=== PATIENT | female | born 1965 | race Caucasian/White ===

== ENCOUNTER 2017-04-11 17:42 | Emergency (ER) | payer SELFPAY ==
[~2017-04-11] VITALS: Ht 172.7 cm; Wt 90.7 kg
[2017-04-11] MEDS ORDERED: SODIUM CHLORIDE 0.9% 1,000 ML IV ONE (22:30)
[2017-04-11 23:44] VITALS: BP 139/79
[2017-04-11] MEDS ORDERED: ONDANSETRON HCL 4 MG/2 ML VIAL IV ONE (23:45)
[2017-04-11] MEDS ORDERED: MORPHINE SULFATE 4 MG/ML SYR/VIAL IV ONE (23:45)
[2017-04-11] MEDS ORDERED: CEFTRIAXONE SODIUM 2 GM in D5W 5% 50 ML IV ONE (23:45)
[2017-04-11 23:49] LABS: Basophils # (auto) 0.1 uL; Basophils % (auto) 0.8 % (0.0-2.0); Eosinophils # (auto) 0.1 uL; Eosinophils % (auto) 1.1 % (0.0-7.0); Hematocrit 42.5 % (36.0-46.0); Hemoglobin 14.3 g/dL (12.2-16.2); Lymphocytes # (auto) 1.9 uL; Lymphocytes % (auto) 17.8 % (10.0-50.0); Mean Corpuscular Hemoglobin 29.5 pg (28.0-32.0); Mean Corpuscular Hgb Conc. 33.7 g/dL (32.0-36.0); Mean Corpuscular Volume 87.3 fL (80.0-100.0); Monocytes # (auto) 0.7 uL; Monocytes % (auto) 6.3 % (0.0-12.0); Neutrophils # (auto) 7.8 uL; Nucleated Red Blood Cells % 0.1 %; Platelet Count (auto) 239 10^3/uL (140-450); Red Blood Cells 4.87 10^6/uL (4.0-5.20); Red Cell Distribution Width 13.5 % (11.8-14.3); White Blood Cell 10.6 10^3/uL (4.4-10.8)
[2017-04-12 00:07] LABS: Albumin 3.6 g/dL (3.4-5.0); BUN/Creatinine Ratio 12.3; Calcium 8.5 mg/dL (8.5-10.1); Potassium 3.8 mmol/L (3.5-5.1)
[2017-04-12 00:13] LABS: Bilirubin, Total 0.2 mg/dL (0.2-1.0); Total Protein 7.7 g/dL (6.4-8.2)
[2017-04-12 00:16] LABS: Urine Bacteria FEW /hpf (None Seen); Urine Blood Negative /uL (Negative); Urine Specific Gravity 1.006 (1.001-1.035); Urine WBC <1 /hpf (0 - 5)
[2017-04-12 00:26] LABS: Alcohol, Urine < 3.0 mg/dL (0-5); Amphetamine Screen, Urine POSITIVE (NEGATIVE); Barbiturate Scree,Urine NEGATIVE (NEGATIVE); Benzodiazephine Screen, Urine NEGATIVE (NEGATIVE); Cannabinoid Screen, Urine NEGATIVE (NEGATIVE); Cocaine Screen, Urine NEGATIVE (NEGATIVE); Opiate Scree,Urine NEGATIVE (NEGATIVE); Phencyclidine Screen, Urine NEGATIVE (NEGATIVE)
[2017-04-12] MEDS ORDERED: KETOROLAC TROMETH 30 MG/ML 1ML VIAL IV ONE (00:45)
[2017-04-12] MEDS ORDERED: KETOROLAC TROMETH 30 MG/ML 1ML VIAL ONE (00:45)
== END 2017-04-12 02:29 | disposition home or self-care (01) ==
LOC: ER 17:50
DX: R51 Headache (principal); M48.02 Spinal stenosis, cervical region
CPT/HCPCS: 36415; 70450; 72125; 80053; 80307; 81001; 85025; 96361; 96374; 96375; 99285; J0696; J1885; J2405; J7030; J7060

== ENCOUNTER 2021-02-15 18:13 | Emergency (ER) | payer SELFPAY ==
[~2021-02-15] VITALS: Ht 172.7 cm; Wt 102.1 kg
[2021-02-15 18:22] VITALS: BP 159/74
[2021-02-15] MEDS ORDERED: MORPHINE SULFATE INJECTION 2 MG/ML SYRG IM ONE (19:30)
[2021-02-15 20:06] LABS: Basophils # (auto) 0.2 10 ^3/uL (0-0.2); Basophils % (auto) 0.8 % (0.0-2.0); Eosinophils # (auto) 0.1 10 ^3/uL (0-0.8); Eosinophils % (auto) 0.4 % (0.0-7.0); Hematocrit 42.7 % (36.0-46.0); Hemoglobin 14.6 g/dL (12.2-16.2); Lymphocytes # (auto) 0.6 10 ^3/uL (0.4-5.4); Lymphocytes % (auto) 2.5 % (10.0-50.0); Mean Corpuscular Hemoglobin 31.1 pg (28.0-32.0); Mean Corpuscular Hgb Conc. 34.2 g/dL (32.0-36.0); Mean Corpuscular Volume 91.2 fL (80.0-100.0); Monocytes # (auto) 1.2 10 ^3/uL (0-1.3); Neutrophils # (auto) 21.6 10 ^3/uL (1.6-8.6); Neutrophils % (auto) 91.3 % (37.0-80.0); Nucleated Red Blood Cells % 0.1 %; Red Blood Cells 4.68 10^6/uL (4.0-5.20); Red Cell Distribution Width 13.7 % (11.8-14.3); White Blood Cell 23.7 10^3/uL (4.4-10.8)
[2021-02-15 20:11] LABS: Urine Bacteria NONE SEEN /hpf (None Seen); Urine Blood 1+ /uL (Negative); Urine Hyaline Cast FEW /lpf (0 - 2); Urine Mucus FEW (None Seen); Urine Specific Gravity 1.021 (1.001-1.035); Urine WBC 225 /hpf (0 - 5)
[2021-02-15 20:38] LABS: Albumin 3.2 g/dL (3.4-5.0); Calcium 8.6 mg/dL (8.5-10.1); Potassium 3.9 mmol/L (3.5-5.1)
[2021-02-15 20:44] LABS: BUN/Creatinine Ratio 15.6; Bilirubin, Total 0.7 mg/dL (0.2-1.0); Total Protein 7.1 g/dL (6.4-8.2)
[2021-02-15] MEDS ORDERED: cefTRIAXone SOD 1,000 MG VL IM ONE (20:45)
[2021-02-15] MEDS ORDERED: CEPH500C PO (21:06)
== END 2021-02-16 00:47 | disposition left against medical advice (07) ==
LOC: ER 18:15
DX: N12 Tubulo-interstitial nephritis, not specified as acute or chronic (principal); Z88.1 Allergy status to other antibiotic agents
CPT/HCPCS: 36415; 74176; 80053; 81001; 85025

== ENCOUNTER 2023-08-17 17:08 | Emergency (ER) | payer SELFPAY ==
[~2023-08-17] VITALS: Ht 172.7 cm; Wt 89.5 kg
[~2023-08-17 17:08] MED LIST: CEPH500C PO
[2023-08-17] MEDS: HYDROcodone-ACET 5/325MG TAB PO ONE (18:05)
[2023-08-17] MEDS: KETOROLAC TROMETH 60MG/2ML VIAL IM ONE (18:05)
[2023-08-17 18:16] VITALS: BP 133/81; PULSE 100; RESP 18; TEMP 98.2; O2SAT 95
[2023-08-17] MEDS ORDERED: IBUP-1455 PO (18:29)
[2023-08-17] MEDS ORDERED: HYDR-4902 PO (18:29)
== END 2023-08-17 18:35 | disposition home or self-care (01) ==
LOC: ER 17:08
DX: M23.91 Unspecified internal derangement of right knee (principal); Z88.1 Allergy status to other antibiotic agents
CPT/HCPCS: 73562; 96372; 99283; J1885

== ENCOUNTER 2024-07-27 15:45 | Emergency (ER) | payer MEDICAID, OTHER ==
[~2024-07-27] VITALS: Ht 167.6 cm; Wt 88.2 kg
[~2024-07-27 15:45] MED LIST changes: +HYDR-4902 PO; +IBUP-1455 PO
--- NOTE | 2024-07-27 16:18 | ED.PDOC ---
Back pain HPI HPI Comments 58 y/o F, presents to the ED for CC of rib pain. Patient states, she lifted an electric scoter off the floor today (07/27/24) at approximately 1530 and is now experiencing left rib pain. Patient denies trauma, fall, or injury. No other symptoms or modifying factors present at this time. Chief Complaint: Rib Pain Time Seen by MD: 16:45 Primary Care Provider: NONE Reviewed Notes: Nurses Notes, Medications, Allergies Allergies: Coded Allergies: Erythromycin (Verified Allergy, Unknown, GI UPSET, 04/11/17) Home Meds Active Scripts Hydrocodone-Acetaminophen (Hydrocodone Bitartrate/AC 5-325 mg) 1 Tab Tab, 1 TAB PO Q6HP PRN, #15 TAB Prov:MIKE PURDY PAC 08/17/23 Ibuprofen Micronized (Ibuprofen) 800 Mg Tab, 800 MG PO Q8HP PRN, #20 TAB Prov:MIKE PURDY PAC 08/17/23 Cephalexin Monohydrate (Cephalexin) 500 Mg Cap, 1 CAP PO QID, #40 CAP Prov:YANIQUE FULTON DO 02/15/21 Information Source: Patient Mode of Arrival: Ambulatory Timing: Hours Duration: Since onset Location of Back pain: (L) Thoracic Severity: Moderate Prehospital treatment: None Onset: Lifing Circumstance: Other (following trauma) Modifying Factors: Nothing Associated signs and symptoms: None Past Medical History PAST MEDICAL HISTORY: Denies Surgical History: Denies all surgeries PERIODICALS LIBRARY ASSISTANT History: No Pertinent PERIODICALS LIBRARY ASSISTANT History Family History Family History: Unknown Social History Smoker: Non-Smoker Alcohol: Denies ETOH Use Drugs: Denies Drug Use Lives In: Home Constitutional: denies: chills, diaphoresis, fatigue, fever, malaise, sweats, weakness, others EENTM: denies: blurred vision, double vision, ear bleeding, ear discharge, ear drainage, ear pain, ear ringing, eye pain, eye redness, hearing loss, mouth pain, mouth swelling, nasal discharge, nose bleeding, nose congestion, nose pain, photophobia, tearing, throat pain, throat swelling, voice changes, others Respiratory: denies: cough, hemoptysis, orthopnea, SOB at rest, shortness of breath, SOB with excertion, stridor, wheezing, others Cardiovascular: denies: chest pain, dizzy spells, diaphoresis, Dyspnea on exertion, edema, irregular heart beat, left arm pain, lightheadedness, palpitations, PND, syncope, others Gastrointestinal: denies: abdomen distended, abdominal pain, blood streaked bowels, constipated, diarrhea, dysphagia, difficulty swallowing, hematemesis, melena, nausea, poor appetite, poor fluid intake, rectal bleeding, rectal pain, vomiting, others Genitourinary: denies: abnormal vagina bleeding, burning, dyspareunia, dysuria, flank pain, frequency, hematuria, incontinence, pain, , vagina discharge, urgency, others Neurological: denies: dizziness, fainting, headache, left sided numbness, left sided weakness, numbness, paresthesia, pre-existing deficit, right sided numbness, right sided weakness, seizure, speech problems, tingling, tremors, weakness, others Musculoskeletal: reports: others (left rib pain); denies: back pain, gout, joint pain, joint swelling, muscle pain, muscle stiffness, neck pain Integumetry: denies: bruises, change in color, change in hair/nails, dryness, laceration, lesions, lumps, rash, wounds, others Allergic/Immunocompromised: denies: Difficulty Healing, Frequent Infections, Hives, Itching, others Hematologic/Lymphatic: denies: anemia, blood clots, easy bleeding, easy bruising, swollen glands, others Endocrine: denies: excessive hunger, excessive sweating, excessive thirst, excessive urination, flushing, intolerance to cold, intolerance to heat, unexplained weight gain, unexplained weight loss, others Psychiatric: denies: anxiety, bipolar disorder, depression, hopeless, panic disorder, schizophrenia, sleepless, suicidal, others All Other Systems: Reviewed and Negative Physical Exam General Appearance: Moderate Distress HEENT: Normal ENT Inspection, Pharynx Normal, TMs Normal Neck: Full Range of Motion, Non-Tender, Normal, Normal Inspection Respiratory: Chest Non-Tender, Lungs Clear, No Accessory Muscle Use, No Respiratory Distress, Normal Breath Sounds Cardiovascular: No Edema, No JVD, No Murmur, No Gallop, Normal Peripheral Pulses, Regular Rate/Rhythm Breast Exam: Deferred Gastrointestinal: No Organomegaly, Non Tender, No Pulsatile Mass, Normal Bowel Sounds, Soft Genitalia: Deferred Pelvic: Deferred Rectal: Deferred Extremities: No calf tenderness, Normal capillary refill, Normal inspection, Normal range of motion, Non-tender, No pedal edema Musculoskeletal : Location: Left Extremity Location: Other (Left costal margin with exquisite tenderness to pressure) Apperance: Normal Neurologic: Alert, 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 Was a procedure done?: No Back Pain Differential Dx Differential Diagnosis: Musculoskeletal Pain, Strain X-Ray, Labs, Meds, VS Vital Signs Date Time Temp Pulse Resp B/P (MAP) Pulse Ox O2 Delivery O2 Flow Rate FiO2 07/27/24 18:27 90 20 96 Room Air* 0 21 07/27/24 18:27 98.0 90 20 141/85 (103) 96 98.0 07/27/24 16:38 97.5 101 16 131/53 (79) 97 97.5 Current Medications Medications (Trade) Dose Ordered Sig/Senia Route Start Time Stop Time Status Last Admin Ketorolac Tromethamine (Toradol Injection) 60 mg ONCE ONCE IM 07/27/24 18:15 07/27/24 18:16 DC 07/27/24 18:23 X-Ray, Labs, Meds, VS Comment Course in the emergency department patient bend over and felt snap with severe pain to her left costal margin Patient will be discharged to follow up with her PCP She was treated and medicated and she feels Time of 1ST Reevaluation: 17:15 Reevaluation 1ST: Unchanged Patient Education/Counseling: Diagnosis, Treatment Family Education/Counseling: No Family Present Departure 1 Departure Time of Disposition: 19:22 Impression: Primary Impression: Acute costochondritis Disposition: 01 HOME / SELF CARE / HOMELESS Condition: Fair Additional Instructions: Local heat and follow up with your PCP e-Prescriptions Cyclobenzaprine Hcl (Cyclobenzaprine Hcl) 10 Mg Tab 10 MG PO TID for 10 Days, #30 TAB Prov: OMAR BELL MD 07/27/24 Diclofenac Potassium (Diclofenac Potassium) 50 Mg Tab 1 TAB PO TIDP for 10 Days, #30 TAB Prov: OMAR BELL MD 07/27/24 Discharged With: Self Critical Care Note Critical Care Time?: No Stability Stability form required: No Heart Score Heart Score: Heart Score Response (Comments) Value History N/A 0 EKG N/A 0 Age 45-64 1 Risk Factors No known risk factors 0 Troponin N/A 0 Total 1 I personally scribed for OMAR BELL MD ([email or web address]) on 07/27/24 at 16:18. Electronically submitted by Angi Tinsley ([email or web address]). I personally scribed for OMAR BELL MD ([email or web address]) on 07/27/24 at 16:52. Electronically submitted by Angi Tinsley [email or web address]). OMAR BELL MD Jul 27, 2024 16:18
[2024-07-27] MEDS: KETOROLAC TROMETH 60MG/2ML VIAL IM ONE (18:23)
[2024-07-27 18:27] VITALS: PULSE 90; RESP 20; O2SAT 96
[2024-07-27] MEDS ORDERED: DICL50TA2 PO (19:23)
[2024-07-27] MEDS ORDERED: CYCL-839 PO (19:23)
[2024-07-27 19:32] VITALS: BP 151/62; PULSE 69; RESP 18; TEMP 98.7; O2SAT 98
== END 2024-07-27 19:33 | disposition home or self-care (01) ==
LOC: ER 15:45
DX: M94.0 Chondrocostal junction syndrome [Tietze] (principal); Z79.899 Other long term (current) drug therapy; Z88.1 Allergy status to other antibiotic agents
CPT/HCPCS: 96372; 99283; J1885

== ENCOUNTER 2025-01-02 02:49 | Emergency (ER) | payer MEDICAID ==
[~2025-01-02] VITALS: Ht 167.6 cm; Wt 101.0 kg
[~2025-01-02 02:49] MED LIST changes: +CYCL-839 PO; +DICL50TA2 PO
[2025-01-02 02:50] VITALS: BP 155/85
[2025-01-02 03:23] VITALS: PULSE 110; RESP 20; TEMP 97.9; O2SAT 95
[2025-01-02] MEDS ORDERED: FLUC150T47 PO (03:32)
[2025-01-02] MEDS ORDERED: IBUP-1456 PO (03:32)
[2025-01-02] MEDS ORDERED: [UNRECOGNIZED DRUG - CODE] EACH EAR (03:32)
--- NOTE | 2025-01-02 03:32 | ED.PDOC ---
Eye-HPI HPI Comments 59-year-old female presents to ER with complaints of bilateral earache pain x2 months. Patient reports that she has been experiencing bilateral earache pain x2 months. Reports that she has been seen several times for her symptoms and prescribed oral antibiotics along with droplet antibiotics without relief. She rates her current pain a 4/10 and does report itching inside bilateral ears. Notes she was referred to see an ENT by her PCP but has not yet made an appointment to see one. Denies fever, body aches, chills, headache, dizziness, skin changes, ear drainage, nausea/vomiting or any further symptoms/complaints Chief Complaint: Earache Time Seen by MD: 03:01 Primary Care Provider: MISBAH Reviewed Notes: Nurses Notes, Medications, Allergies Allergies: Coded Allergies: Erythromycin (Verified Allergy, Unknown, GI UPSET, 04/11/17) Home Meds Active Scripts Ibuprofen (Ibuprofen) 800 Mg Tab, 1 TAB PO TID, #30 TAB 0 Refills Prov:DIMITRI BACON 01/02/25 Fluconazole (Fluconazole) 150 Mg Tab, 150 MG PO DAILY for 3 Days, #3 TAB 0 Refills Prov:DIMITRI BACON 01/02/25 Acetic Acid (Acetic Acid) 3 % Ilda, 3 DROP EACH EAR Q6HR for 5 Days, #1 BOTTLE 0 Refills Prov:DIMITRI BACON 01/02/25 Diclofenac Potassium (Diclofenac Potassium) 50 Mg Tab, 1 TAB PO TIDP for 10 Days, #30 TAB Prov:OMAR BELL MD 07/27/24 Cyclobenzaprine Hcl (Cyclobenzaprine Hcl) 10 Mg Tab, 10 MG PO TID for 10 Days, #30 TAB Prov:OMAR BELL MD 07/27/24 Hydrocodone-Acetaminophen (Hydrocodone Bitartrate/AC 5-325 mg) 1 Tab Tab, 1 TAB PO Q6HP PRN, #15 TAB Prov:MIKE PURDY PAC 08/17/23 Ibuprofen Micronized (Ibuprofen) 800 Mg Tab, 800 MG PO Q8HP PRN, #20 TAB Prov:MIKE PURDY PAC 08/17/23 Cephalexin Monohydrate (Cephalexin) 500 Mg Cap, 1 CAP PO QID, #40 CAP Prov:YANIQUE FULTON DO 02/15/21 Information Source: Patient Mode of Arrival: Ambulatory Past Medical History PAST MEDICAL HISTORY: Denies Surgical History: Denies all surgeries ACCOUNT ADMINISTRATOR History: No Pertinent ACCOUNT ADMINISTRATOR History Family History Family History: Unknown Social History Smoker: Non-Smoker Alcohol: Denies ETOH Use Drugs: Denies Drug Use Lives In: Home Constitutional: denies: chills, diaphoresis, fatigue, fever, malaise, sweats, weakness, others EENTM: reports: others (As stated in HPI) Respiratory: denies: cough, hemoptysis, orthopnea, SOB at rest, shortness of breath, SOB with excertion, stridor, wheezing, others Cardiovascular: denies: chest pain, dizzy spells, diaphoresis, Dyspnea on exertion, edema, irregular heart beat, left arm pain, lightheadedness, palpitations, PND, syncope, others Gastrointestinal: denies: abdomen distended, abdominal pain, blood streaked bowels, constipated, diarrhea, dysphagia, difficulty swallowing, hematemesis, melena, nausea, poor appetite, poor fluid intake, rectal bleeding, rectal pain, vomiting, others Genitourinary: denies: abnormal vagina bleeding, burning, dyspareunia, dysuria, flank pain, frequency, hematuria, incontinence, pain, , vagina discharge, urgency, others Neurological: denies: dizziness, fainting, headache, left sided numbness, left sided weakness, numbness, paresthesia, pre-existing deficit, right sided numbness, right sided weakness, seizure, speech problems, tingling, tremors, weakness, others Musculoskeletal: denies: back pain, gout, joint pain, joint swelling, muscle pain, muscle stiffness, neck pain, others Integumetry: denies: bruises, change in color, change in hair/nails, dryness, laceration, lesions, lumps, rash, wounds, others Allergic/Immunocompromised: denies: Difficulty Healing, Frequent Infections, Hives, Itching, others Hematologic/Lymphatic: denies: anemia, blood clots, easy bleeding, easy bruising, swollen glands, others Endocrine: denies: excessive hunger, excessive sweating, excessive thirst, excessive urination, flushing, intolerance to cold, intolerance to heat, unexplained weight gain, unexplained weight loss, others Psychiatric: denies: anxiety, bipolar disorder, depression, hopeless, panic disorder, schizophrenia, sleepless, suicidal, others Physical Exam General Appearance: No Apparent Distress HEENT: PERRL/EOMI, Pharynx Normal, TMs Normal, Other (Black fungal speckles noted to bilateral TMs without erythema or purulent drainage noted. 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 Was a procedure done?: No Sedation Sedation?: No EENT DIFF Eye: N/A Ear: Abrasion, Cerumen Impaction, Foreign Body, Otitis Externa, Otitis Media, Perforation X-Ray, Labs, Meds, VS Vital Signs Date Time Temp Pulse Resp B/P (MAP) Pulse Ox O2 Delivery O2 Flow Rate FiO2 01/02/25 03:23 97.9 110 20 95 97.9 01/02/25 03:18 Room Air* 0 21 01/02/25 02:50 97.7 119 20 155/85 96 97.7 Advised to keep ear canal dry Advised to f/u with PCP and ENT in 1-3 days Patient verbalized understanding and agreeable with current plan of care Advised to return to ER immediately if symptoms worsen Time of 1ST Reevaluation: 03:04 Reevaluation 1ST: N/A Patient Education/Counseling: Diagnosis, Treatment, Prognosis, Need For Follow Up Family Education/Counseling: No Family Present SEPSIS Sepsis Screen Date sepsis recognized/suspect: Jan 02, 2025 Time Sepsis recognized/suspect: 251 Recent Procedure: No On Antibiotic Therapy: No Respiratory Rate >20: No Heart Rate >90: No Temp<36 C (96.8 F) or >38.3 C: No SBP <90 or MAP <65 mmHG: No New Acute Mental Status Change: No Is the patient on CPAP, BIPAP,: No Vital Signs Date Time Temp Pulse Resp B/P (MAP) Pulse Ox O2 Delivery O2 Flow Rate FiO2 01/02/25 03:23 97.9 110 20 95 97.9 01/02/25 03:18 Room Air* 0 21 01/02/25 02:50 97.7 119 20 155/85 96 97.7 Departure 1 Departure Time of Disposition: 03:20 Impression: Primary Impression: Otomycosis of both ears Disposition: HOME / SELF CARE / HOMELESS Condition: Stable e-Prescriptions Ibuprofen (Ibuprofen) 800 Mg Tab 1 TAB PO TID, #30 TAB 0 Refills Prov: DIMITRI BACON 01/02/25 Fluconazole (Fluconazole) 150 Mg Tab 150 MG PO DAILY for 3 Days, #3 TAB 0 Refills Prov: DIMITRI BACON 01/02/25 Acetic Acid (Acetic Acid) 3 % Ilda 3 DROP EACH EAR Q6HR for 5 Days, #1 BOTTLE 0 Refills Prov: DIMITRI BACON 01/02/25 Discharged With: Self Critical Care Note Critical Care Time?: No Stability Stability form required: No Heart Score Heart Score: Heart Score Response (Comments) Value History N/A 0 EKG N/A 0 Age N/A 0 Risk Factors N/A 0 Troponin N/A 0 Total 0 DIMITRI BACON Jan 02, 2025 03:32
== END 2025-01-02 03:40 | disposition home or self-care (01) ==
LOC: ER 02:49
DX: B36.9 Superficial mycosis, unspecified (principal); H62.43 Otitis externa in other diseases classified elsewhere, bilateral; H92.03 Otalgia, bilateral; Z88.1 Allergy status to other antibiotic agents